=== PATIENT | male | born 1960 | race Two or more races ===

== ENCOUNTER 2018-01-13 20:32 | Inpatient (IN) | payer MEDICAID, OTHER ==
[~2018-01-13] VITALS: Ht 170.2 cm; Wt 72.1 kg
[~2018-01-13 20:32] MED LIST: ACET-868 PO; BISA10SU8 RC; CHOL500052 PO; DOCU250C14 PO; Doxycycline Hyclate PO; LACT1CAP72 PO; LEVE250T2 PO; MUPI22OI7; OXCA600T8 PO; PANT40TA2 PO; PIPERACILLIN /TAZOBACTAM 3.375 G in IV D5W 50 ML IV ONE; SUCR1TAB PO; TAMS-12 PO
--- NOTE | 2018-01-13 20:45 | NUR ---
GERRI86 FROM [facility] C/O SOB/FEVER/LOW 02 SAT X 2 DAYS. PT DX W/PNEUMONIA AND STARTED ON ROCEPHIN AT 1700 TODAY. AOX2, TACHYCARDIC AND HYPOTENSIVE. PT IS CONFUSED, MOSTLY GIVES YES AND NO ANSWERS. SKIN WARM TO TOUCH, DRY, INTACT. 2 IV SITES SOCK LINING STITCHER, RIGHT FINGER AND LEFT AC. READY FOR EVAL. WILL CONT TO MONITOR.
[2018-01-13] MEDS ORDERED: PIPERACILLIN /TAZOBACTAM 3.375 G VIAL IV ONE (20:49)
[2018-01-13] MEDS ORDERED: ACETAMINOPHEN 650 MG/SUPP.RECT RC ONE ×2 (20:49→21:00)
[2018-01-13] MEDS ORDERED: VANCOMYCIN 1 GM VIAL ONE ×2 (20:49→23:35)
--- NOTE | 2018-01-13 20:55 | NUR ---
SCREW MACHINE TOOL SETTER IN ROOM
[2018-01-13] MEDS ORDERED: PIPERACILLIN /TAZOBACTAM 3.375 G in IV D5W 50 ML IV ONE (21:00)
[2018-01-13] MEDS ORDERED: VANCOMYCIN 1 GM in IV D5W 250 ML IV ONE ×2 (21:00→23:45)
[2018-01-13] MEDS ORDERED: IV NS 0.9% 1,000 ML BAG IV ONE (21:00)
[2018-01-13] MEDS ORDERED: ALBUTEROL FS 2.5 MG/3 ML VIAL.NEB ONE (21:07)
[2018-01-13 21:22] LABS: BASOPHILS % (AUTO) 0.3 % (0.0-2.0); EOSINOPHILS % (AUTO) 0.9 % (0.0-6.0); HEMATOCRIT 48 % (39-51); LYMPHOCYTES # (AUTO) 0.5 /CMM (0.8-4.8); LYMPHOCYTES % (AUTO) 4.8 % (20.0-44.0); MEAN CORPUSCULAR HGB CONC 33 g/dl (31.0-36.0); MEAN CORPUSCULAR VOLUME 91 fL (80-96); MONOCYTES # (AUTO) 0.9 /CMM (0.1-1.30); MONOCYTES % (AUTO) 7.8 % (2.0-12.0); NEUTROPHILS # (AUTO) 9.6 /CMM (1.8-8.9); NEUTROPHILS % (AUTO) 86.2 % (43.0-81.0); PLATELET COUNT (AUTO) 175 /CMM (150-450); RED BLOOD CELL COUNT(AUTO) 5.33 MIL/uL (4.5-6.0); WHITE BLOOD COUNT (AUTO) 11.1 K/uL (4.3-11.0)
[2018-01-13] MEDS ORDERED: methylPREDNISolone SOD SUCC 125 MG/2ML VIAL IV ONE (21:30)
[2018-01-13] MEDS ORDERED: ALBUTEROL FS 2.5 MG/3 ML VIAL.NEB CONTNEB ONE (21:30)
--- NOTE | 2018-01-13 21:39 | NUR ---
PT CAME IN WITH IV ON RIGHT FINGER AND LEFT AC. D/C BOTH DUE TO INABILITY TO FLUSH
--- NOTE | 2018-01-13 22:10 | NUR ---
UNABLE TO INFUSE FLUIDS/MEDICATIONS DUE TO INABILITY TO GAIN APPROPRIATE IV ACCESS. CAN, HARP REPAIRER NOTIFIED.
[2018-01-13 22:25] VITALS: BP 97/60
[2018-01-13 22:27] LABS: ALANINE AMINOTRANSFERASE 40 U/L (12-78); ALKALINE PHOSPHATASE 141 U/L (46-116); ASPARTATE AMINOTRANSFERASE 41 U/L (15-37); BILIRUBIN,DIRECT 0.1 mg/dL (0.0-0.2); BILIRUBIN,TOTAL 0.3 mg/dL (0.2-1.0); CALCIUM, SERUM 8.1 mg/dL (8.5-10.1); CARBON DIOXIDE 27 mmol/L (21-32); CHLORIDE 105 mmol/L (98-107); CREATININE 0.7 mg/dL (0.6-1.3); GLUCOSE 168 mg/dL (74-106); SODIUM SERUM 142 mmol/L (136-145); TOTAL PROTEIN, SERUM 7.5 g/dL (6.4-8.2)
--- NOTE | 2018-01-13 22:27 | NUR ---
RT PT PLACED ON BIPAP PER MD ORDERS WITH NOTED SETTING. PT TOLERATING SETTING WELL. BIPAP TO RED OUTLET. SERAFINU BAG AT HOB. WILL CONTINUE TO MONITOR. Addendum: 01/13/18 at 2230 by MICHELLE HEARD RT Amended: Links added.
[2018-01-13] MEDS ORDERED: ALBUTEROL FS 2.5 MG/0.5 ML VIAL.NEB NEB PRN (22:30)
[2018-01-13] MEDS ORDERED: NOREPINEPHRINE 8 MG in IV D5W 500 ML IV PRN (22:30)
[2018-01-13] MEDS ORDERED: IPRATROPIUM NEB FS 0.5 MG/2.5 ML AMPUL.NEB NEB PRN (22:30)
[2018-01-13] MEDS ORDERED: ACETAMINOPHEN 650 MG/SUPP.RECT RC PRN (22:30)
[2018-01-13 22:32] LABS: UREA NITROGEN, BLOOD 8 mg/dL (7-18)
--- NOTE | 2018-01-13 23:00 | NUR ---
REPORT GIVEN TO ALEXSANDRA CALVERT
--- NOTE | 2018-01-13 23:10 | NUR ---
SHELL MOLD BONDING MACHINE OPERATOR NOTES Received patient from ER ,awake,alert,follows commands seems to understand,but not talking,.Stable ,not in any distress,was transported on NRM 100 % 02,tolerating well,but patient is on BIPAP. [facility],Fever and low O2 saturation,has not been feeling well for the last 5 days ..HX of Seizure Disorder,Dementia, HTN,COPD,GERD,Neurogenic Bladder. In ER was febrile gcfw=644,weas given Tylenol, Lactic Acid=0.9.Troponin=0.017, was given Zosyn,Ceftriaxone. was unable to give fluid bolus due to Access issue( unable to obtain IV access).Pending Midline Insertion. Patient alert, moves all extremities but with weakness but is able to turn to sides and lift all extremities,skin intact.Abdomen large but soft,non tender.
[2018-01-13 23:15] VITALS: BP 101/61
--- NOTE | 2018-01-13 23:18 | NUR ---
PT TRANSFERRED TO ICU
[2018-01-13 23:30] VITALS: BP 99/65
[2018-01-14] VITALS (59 sets, daily range): BP systolic 72–118; BP diastolic 28–84
[2018-01-14] MEDS ORDERED: PIPERACILLIN /TAZOBACTAM 3.375 G in IV D5W 50 ML IV SCH ×2
[2018-01-14] MEDS ORDERED: methylPREDNISolone SOD SUCC 125 MG/2ML VIAL ONE (00:19)
[2018-01-14] MEDS: IV NS 0.9% 1,000 ML IV PRN ×2 (00:20→18:13)
--- NOTE | 2018-01-14 01:00 | NUR ---
COUPON MANIFEST CLERK NOTES MIDLINE INSERTED BY PICC RN ,(DIANA) VIA ELLY WITH GOOD BLOOD RETURN.IVFLUIDS STARTED,VANCOMYCIN INFUSION STARTED AND FLUID BOLUSES ORDERED IN ER STARTED.
[2018-01-14 03:43] LABS: ABG BASE EXCESS -3.7 mmol/L; ABG OXYGEN SATURATION 99.3 % (92.0-98.5); ABG PCO2 58.3 mmHg (35.0-45.0); ABG PH 7.244 (7.350-7.450); ABG PO2 494.8 mmHg (75.0-100.0); AaDO2 159.9 mmHg; COHb 0.4 % (0.5-1.5); MetHb 0.9 % (0.0-1.5); PEEP,BG 5 cm H2O; SITE, ABG Right Radial; VENT MODE, BG ST 17/5 R14 100%
[2018-01-14] MEDS ORDERED: PIPERACILLIN /TAZOBACTAM 3.375 G in IV D5W 50 ML IV ONE (04:00)
--- NOTE | 2018-01-14 04:00 | NUR ---
AGRONOMY ADVISOR NOTES REMAINS STABLE ,AWAKE,ALERT BUT NOW MORE INTERACTIVE,TALKING CLEARLY,COHERENT AND APPROPRIATE.NOT IN ANY DISTRESS,MAINTAINED ON BIPAP ALL NIGHT( PATIENT COMPLIANT). BIPAP SETTINGS ADJUSTED BY RT ( BASED ON ABG).FIO2 DOWN TO 50 %,BUT INCREASED IPAP.
[2018-01-14] MEDS ORDERED: PIPERACILLIN /TAZOBACTAM 3.375 G VIAL IV ONE (04:15)
[2018-01-14 05:10] LABS: CALCIUM, SERUM 6.8 mg/dL (8.5-10.1); CREATININE 0.7 mg/dL (0.6-1.3); MAGNESIUM 1.8 mg/dL (1.8-2.4); POTASSIUM 3.7 mmol/L (3.5-5.1)
[2018-01-14 05:42] LABS: EOSINOPHILS % (AUTO) 0.1 % (0.0-6.0); HEMATOCRIT 43 % (39-51); HEMOGLOBIN 14.2 g/dL (13.5-17.5); LYMPHOCYTES # (AUTO) 0.3 /CMM (0.8-4.8); LYMPHOCYTES % (AUTO) 3.9 % (20.0-44.0); MEAN CORPUSCULAR HGB CONC 33 g/dl (31.0-36.0); MEAN CORPUSCULAR VOLUME 92 fL (80-96); MONOCYTES # (AUTO) 0.3 /CMM (0.1-1.30); MONOCYTES % (AUTO) 3.5 % (2.0-12.0); NEUTROPHILS # (AUTO) 7.8 /CMM (1.8-8.9); NEUTROPHILS % (AUTO) 92.5 % (43.0-81.0); PLATELET COUNT (AUTO) 166 /CMM (150-450); RED BLOOD CELL COUNT(AUTO) 4.72 MIL/uL (4.5-6.0); WHITE BLOOD COUNT (AUTO) 8.5 K/uL (4.3-11.0)
[2018-01-14] MEDS ORDERED: NOREPINEPHRINE 4 MG/4 ML AMPUL IV ONE (06:11)
--- NOTE | 2018-01-14 06:25 | NUR ---
TRAFFIC SIGN SUPERVISOR NOTES BP CONSISTENTLY LOW IN THE 80'S EVEN WHEN PATIENT AWAKENS.STARTED LEVOPHED DRIP.
--- NOTE | 2018-01-14 07:36 | NUR ---
FISHER SPEAR RECEIVED PATIENT FROM THE PREVIOUS SHIFT. PATIENT IS IN BED. RESTING COMFORTABLY. NO ACUTE DISTRESS NOTED. BIPAP SETTINGS REVIEWED AND VERIFIED. SLEEPING AT THIS TIME. ALERT AWAKE AND AROUSABLE. WILL CONTINUE TO MONITOR AND PROVIDE CARE.
[2018-01-14] MEDS ORDERED: FEE PK DOSING 1 MIN EA MC ONE (09:11)
[2018-01-14] MEDS: PANTOPRAZOLE 40 MG VIAL IV SCH (09:15)
[2018-01-14] MEDS ORDERED: BISACODYL SUPP (10 MG) 10 MG/SUPP.RECT SUPP.RECT RC PRN (10:00)
[2018-01-14] MEDS ORDERED: VANCOMYCIN 1 GM in IV D5W 250 ML IV SCH (10:00)
[2018-01-14] MEDS: VANCOMYCIN 1 GM in IV D5W 250 ML IV SCH ×2 (11:12→17:23)
[2018-01-14] MEDS: methylPREDNISolone SOD SUCC 125 MG/2ML VIAL IV SCH (11:12)
[2018-01-14] MEDS: LEVETIRACETAM (250 MG) 250 MG TABLET PO SCH ×2 (11:12→21:30)
[2018-01-14] MEDS: PIPERACILLIN /TAZOBACTAM 3.375 G in IV D5W 100 ML IV SCH ×2 (11:12→17:22)
--- NOTE | 2018-01-14 11:12 | NUR ---
pt placed off bipap. onto n/c. reel slitter Antony aware of changes. Addendum: 01/14/18 at 1113 by RAFAEL MARIANO RT Amended: Links added.
[2018-01-14] MEDS: OXCARBAZEPINE 150 MG TABLET PO SCH ×2 (11:13→17:23)
[2018-01-14] MEDS ORDERED: POTASSIUM PHOSPHATE MM 7.5 MMOL in IV D5W 100 ML IV SCH (11:30)
[2018-01-14 14:52] LABS: APPEARANCE,URINE CLEAR (CLEAR); BILIRUBIN,URINE NEGATIVE (NEGATIVE); BLOOD, URINE TRACE-INTA Ery/uL (NEGATIVE); COLOR,URINE YELLOW (YELLOW); KETONES,URINE 1+ (NEGATIVE); LEUKOCYTE ESTERASE ,URINE TRACE (NEGATIVE); NITRITE, URINE NEGATIVE (NEGATIVE); PROTEIN,URINE NEGATIVE (NEGATIVE); UGLUCOSE 1+ mg/dL (NEGATIVE); UROBILINOGEN,URINE 0.2 EU/dL (0.2)
[2018-01-14 15:16] LABS: BACTERIA,URINE 1+ /HPF (None Seen); SQUAMOUS EPITHELIAL CELL,UR 0-2 /HPF (None Seen)
[2018-01-14] MEDS: LACTOBACILLUS RHAMNOSUS GG 1 EACH CAP.SPRINK PO SCH (17:23)
--- NOTE | 2018-01-14 19:00 | NUR ---
RECEIVED PT IN NO ACUTE DISTRESS IN BED. PT IS A/O X 3 AND ABLE TO MAKE NEEDS KNOWN. PT IS [place] SPEAKING WITH SOME UNDERSTANDING OF WOLOF. PT IS ON O2 VIA NC @ 4LPM AND TOLERATING WELL WITH O2 SAT @ 96%. PT NOT C/O ANY SOB, DIFFICULTY BREATHING OR PAIN AT THIS TIME. PT HAS ELLY MIDLINE THAT IS CLEAN DRY INTACT AND PATENT WITH NS @ 75ML/HR. PT HAS RIGHT FOOT 20G THAT IS CLEAN DRY INTACT AND PATENT WITH SALINE FLUSH. BED IN LOW LOCK POSITION WITH RIALS UP X 2. CALL LIGHT WITHIN REACH AND ALL SAFETY MEASURES ENSURED AND CARRIED OUT. WILL CONTINUE TO MONITOR.
[2018-01-14] MEDS: TAMSULOSIN 0.4 MG CAP.SR.24H PO SCH (21:30)
[2018-01-14] MEDS: SUCRALFATE 1 G TABLET PO SCH (21:30)
[2018-01-14] MEDS: DOCUSATE SODIUM 250 MG CAPSULE PO SCH (21:30)
[2018-01-15] VITALS (18 sets, daily range): BP systolic 87–124; BP diastolic 48–77
[2018-01-15] MEDS: VANCOMYCIN 1 GM in IV D5W 250 ML IV SCH ×3 (02:40→16:57)
[2018-01-15] MEDS: PIPERACILLIN /TAZOBACTAM 3.375 G in IV D5W 100 ML IV SCH ×3 (02:40→18:53)
[2018-01-15 04:57] LABS: CALCIUM, SERUM 7.8 mg/dL (8.5-10.1); CREATININE 0.6 mg/dL (0.6-1.3); POTASSIUM 3.5 mmol/L (3.5-5.1)
[2018-01-15] MEDS: IV NS 0.9% 1,000 ML IV PRN (06:34)
--- NOTE | 2018-01-15 07:20 | NUR ---
PT REMAINS IN NO ACUTE DISTRESS IN BED. PT DID NOT HAVE ANY SIGNIFICANT CHANGE IN CONDITION DURING SHIFT. ALL NEEDS MET, ALL ORDERS CARRIED OUT. WILL ENDORSE CARE TO AM RN FOR CONTINUITY OF CARE.
[2018-01-15] MEDS ORDERED: PANTOPRAZOLE 40 MG TABLET.DR PO SCH (07:30)
--- NOTE | 2018-01-15 07:30 | NUR ---
received patient alert confused a/ox1-2; pleasant/cooperative. vss. iv sites c/d/i/p with ivf running per order. safety, skin, aspiration precautions in place and will monitor
--- NOTE | 2018-01-15 08:53 | NUR ---
PER DR ESTEFANI DIEGO TO TRANSFER PATIENT TO TELE
[2018-01-15] MEDS: methylPREDNISolone SOD SUCC 125 MG/2ML VIAL IV SCH (10:08)
[2018-01-15] MEDS: LACTOBACILLUS RHAMNOSUS GG 1 EACH CAP.SPRINK PO SCH ×2 (10:08→16:51)
[2018-01-15] MEDS: OXCARBAZEPINE 150 MG TABLET PO SCH ×2 (10:08→16:51)
[2018-01-15] MEDS: PANTOPRAZOLE 40 MG VIAL IV SCH (10:08)
[2018-01-15] MEDS: SUCRALFATE 1 G TABLET PO SCH ×2 (10:08→20:52)
[2018-01-15 10:09] LABS: ABG BASE EXCESS 5.9 mmol/L; ABG OXYGEN SATURATION 92.3 % (92.0-98.5); ABG PCO2 56.1 mmHg (35.0-45.0); ABG PH 7.384 (7.350-7.450); ABG PO2 61.1 mmHg (75.0-100.0); AaDO2 21.5 mmHg; COHb 0.8 % (0.5-1.5); MetHb 0.7 % (0.0-1.5); O2Hb 90.9 % (94.0-97.0); SITE, ABG Right Radial; VENT MODE, BG room air
[2018-01-15] MEDS: LEVETIRACETAM (250 MG) 250 MG TABLET PO SCH ×2 (10:17→20:51)
--- NOTE | 2018-01-15 10:30 | NUR ---
dr arango notified of patient abg. taken on room air. per md sutton for 1lpm nc and ok downgrade to tele bed. nitin bueno notified
[2018-01-15] MEDS: IPRATROPIUM NEB FS 0.5 MG/2.5 ML AMPUL.NEB NEB SCH ×3 (11:48→20:00)
[2018-01-15] MEDS: ALBUTEROL FS 2.5 MG/0.5 ML VIAL.NEB NEB SCH ×3 (11:48→20:00)
--- NOTE | 2018-01-15 12:28 | NUR ---
REPORT GIVEN TO ABEBE UPTON FOR JESSEE. ROOM 111-2 TELE
--- NOTE | 2018-01-15 12:30 | NUR ---
TRANSFERRED PATIENT TO TELE 111.2 CARE ENDORSED TO ALEXSANDRA LOMAS FOR JESSEE.
--- NOTE | 2018-01-15 12:35 | NUR ---
BUTTON SAWYER OPENING NOTES PT TRANSFERRED TO 111-2 FROM ICU. REPORT TAKEN FROM ALEXSANDRA MORALES. PT IS NOT IN RESP DISTRESS. ON TELE ST 104. ZOSYN RUNNING VIA ELLY MIDLINE. NO S/SX INFECTION. BED ALARM ON. BED IN LOCKED/LOWEST POSITION. CALL LIGHT IN REACH. WILL CONT TO MONITOR.
--- NOTE | 2018-01-15 19:10 | NUR ---
TELE/RN INITIAL NOTES RECEIVED PT IN BED, ALERT, ON 1L O2 VIA NC, TOLERATING WELL, NO SOB NOTED. SINUS TACHY ON TELEMONITOR. WITH ONGOING ZOSYN AND IVF NS @ 75ML/HR INFUSING WELL ON ELLY MIDLINE. WITH INTACT AND PATENT RFOOT G20 HEPLOCK. HOB ELEVATED. SAFETY MEASURES IN PLACED. CALL LIGHT WITHIN EASY REACH. WILL CONT TO MONITOR
--- NOTE | 2018-01-15 19:16 | NUR ---
DIRECTOR CARDIOVASCULAR CLOSING NOTES REPORT GIVEN TO PM NURSE FOR JESSEE. PT HAS ZOSYN RUNNING VIA ELLY MIDLINE. PT IS RESTING IN BED. NO COMPLAINTS OR RESP DISTRESS NOTED. BED IN LOCKED/LOWEST POSITION. CALL LIGHT IN REACH. ALL NEEDS ATTENDED TO.
[2018-01-15] MEDS: DOCUSATE SODIUM 250 MG CAPSULE PO SCH (21:30)
[2018-01-15] MEDS: TAMSULOSIN 0.4 MG CAP.SR.24H PO SCH (21:30)
[2018-01-15] MEDS: ACETAMINOPHEN 325 MG TABLET PO PRN (21:32)
[2018-01-16] VITALS: BP 107/67
[2018-01-16] MEDS: PIPERACILLIN /TAZOBACTAM 3.375 G in IV D5W 100 ML IV SCH ×3 (01:35→18:02)
[2018-01-16] MEDS: VANCOMYCIN 1 GM in IV D5W 250 ML IV SCH ×3 (01:36→17:52)
[2018-01-16 04:00] VITALS: BP 110/68
--- NOTE | 2018-01-16 06:47 | NUR ---
RN NOTES PT IN STABLE CONDITION. NO ACUTE CHANGES NOTED THROUGHOUT SHIFT. SAFETY MEASURES OBSERVED AT ALL TIMES. ALL NEEDS ANTICIPATED. ENDORSED TO AM SHIFT RN FOR JESSEE
[2018-01-16 08:00] VITALS: BP 114/78
--- NOTE | 2018-01-16 08:00 | NUR ---
PAPER BAGS SEWING MACHINE OPERATOR NOTES RECEIVE PATIENT IN BED, ALERT ORIENTED X2. O2 1L VIA NC, O2 SAT 95%. PATIENT ON TELEMONITOR. ST 107, PATIENT HAVING BREAKFAST FED BY STAFF. RIGHT UPPER LINE WITH NS 75CC/HR. BED IN LOWEST AND LOCKED POSITION. CALL LIGHT WAS IN REACH, WE WILL CONTINUE TO MONITOR CLOSELY
[2018-01-16] MEDS: ALBUTEROL FS 2.5 MG/0.5 ML VIAL.NEB NEB SCH ×4 (08:20→19:30)
[2018-01-16] MEDS: IPRATROPIUM NEB FS 0.5 MG/2.5 ML AMPUL.NEB NEB SCH ×4 (08:20→19:30)
[2018-01-16] MEDS: OXCARBAZEPINE 150 MG TABLET PO SCH ×2 (08:23→16:19)
[2018-01-16] MEDS: methylPREDNISolone SOD SUCC 125 MG/2ML VIAL IV SCH (08:24)
[2018-01-16] MEDS: SUCRALFATE 1 G TABLET PO SCH ×2 (08:24→20:37)
[2018-01-16] MEDS: LACTOBACILLUS RHAMNOSUS GG 1 EACH CAP.SPRINK PO SCH ×2 (08:24→16:19)
[2018-01-16] MEDS: PANTOPRAZOLE 40 MG VIAL IV SCH (08:25)
[2018-01-16 08:31] LABS: CALCIUM, SERUM 8.2 mg/dL (8.5-10.1); CREATININE 0.6 mg/dL (0.6-1.3); POTASSIUM 3.9 mmol/L (3.5-5.1)
[2018-01-16] MEDS: LEVETIRACETAM (250 MG) 250 MG TABLET PO SCH ×2 (08:33→20:38)
[2018-01-16] MEDS ORDERED: ERGOCALCIFEROL (VITAMIN D 2) 50,000 UNIT CAPSULE PO SCH (09:00)
[2018-01-16] MEDS: IV NS 0.9% 1,000 ML IV PRN (09:26)
--- NOTE | 2018-01-16 09:41 | NUR ---
ANALYTIC PROGRAMMER NOTE ST AT BEDSIDE SWALLOW EVAL DONE ,CONT ON PUREE DIET
[2018-01-16] MEDS: ACETAMINOPHEN 325 MG TABLET PO PRN (09:55)
--- NOTE | 2018-01-16 10:10 | NUR ---
GALLEY HAND NOTE DR JARA AT BEDSIDE AWARE THAT PATIENT STILL WHEEZING UPON AUSCULTATION BREATHING TX OK ON IVF ORDERED ,WILL F\U
[2018-01-16 10:37] LABS: BASOPHILS % (AUTO) 0.3 % (0.0-2.0); EOSINOPHILS % (AUTO) 0.3 % (0.0-6.0); HEMATOCRIT 49 % (39-51); HEMOGLOBIN 15.9 g/dL (13.5-17.5); LYMPHOCYTES # (AUTO) 0.7 /CMM (0.8-4.8); LYMPHOCYTES % (AUTO) 8.2 % (20.0-44.0); MEAN CORPUSCULAR HGB CONC 33 g/dl (31.0-36.0); MEAN CORPUSCULAR VOLUME 90 fL (80-96); MONOCYTES # (AUTO) 0.4 /CMM (0.1-1.30); MONOCYTES % (AUTO) 4.3 % (2.0-12.0); NEUTROPHILS # (AUTO) 7.9 /CMM (1.8-8.9); NEUTROPHILS % (AUTO) 86.9 % (43.0-81.0); PLATELET COUNT (AUTO) 237 /CMM (150-450); RED BLOOD CELL COUNT(AUTO) 5.38 MIL/uL (4.5-6.0); WHITE BLOOD COUNT (AUTO) 9.1 K/uL (4.3-11.0)
[2018-01-16 12:00] VITALS: BP 130/85
--- NOTE | 2018-01-16 12:30 | NUR ---
telephone messenger note all needs attended ,having lunch , fed by stuff, aspiration precaution observed , will cont to monitor closely
[2018-01-16] MEDS ORDERED: MAGN400O6 PO (12:52)
[2018-01-16] MEDS ORDERED: NA P133E RC (12:52)
[2018-01-16] MEDS ORDERED: CHOL50004 PO (12:52)
[2018-01-16] MEDS ORDERED: ATOR10TA PO (12:52)
--- NOTE | 2018-01-16 14:22 | NUR ---
INTERPRETER DEAF NOTE CALLED TO SNF ABOUT UA RESULT AT SNF TO FAX , SPOKE WITH MEDICAL RECORD , STATED THAT NO UA AT SNF
--- NOTE | 2018-01-16 14:57 | NUR ---
MARKETING PLANNING MANAGER NOTE NEW HL ON LT AC MELANIA 24 INSERTED WITH GOOD BLOOD RETURN
[2018-01-16 16:00] VITALS: BP 117/66
--- NOTE | 2018-01-16 18:33 | NUR ---
OFFICE RENTAL CLERK NOTE CONT ON ATB ORDERED FED BY STUFF , ALL NEEDS ATTENDED
--- NOTE | 2018-01-16 19:10 | NUR ---
TELE/RN INITIAL NOTES RECEIVED PT IN BED, A/OX2. SR HR 90S ON TELEMONITOR. ON 1L O2 VIA NC, TOLERATING WELL. NO SOB NOTED. DENIES PAIN AT THIS TIME. WITH ONGOING ZOSYN IV ATB AND NS AT 75 ML/HR INFUSING WELL ON ELLY MIDLINE. HOB ELEVATED. SAFETY MEASURES IN PLACED. CALL LIGHT WITHIN EASY REACH. WILL CONT TO MONITOR
[2018-01-16 20:00] VITALS: BP 110/73
[2018-01-16] MEDS: TAMSULOSIN 0.4 MG CAP.SR.24H PO SCH (21:06)
[2018-01-16] MEDS: DOCUSATE SODIUM 250 MG CAPSULE PO SCH (21:07)
[2018-01-17] VITALS: BP 103/64
[2018-01-17] MEDS: PIPERACILLIN /TAZOBACTAM 3.375 G in IV D5W 100 ML IV SCH ×3 (01:16→17:38)
[2018-01-17 04:00] VITALS: BP 103/65
[2018-01-17] MEDS: IV NS 0.9% 1,000 ML IV PRN ×2 (04:14→21:30)
--- NOTE | 2018-01-17 06:58 | NUR ---
RN NOTES PT IN STABLE CONDITION. NO ACUTE CHANGES THROUGHOUT SHIFT. SAFETY MEASURES OBSERVED AT ALL TIMES. ALL NEEDS ANTICIPATED. CALL LIGHT WITHIN EASY REACH. ENDORSED TO AM SHIFT RN FOR JESSEE
[2018-01-17 06:59] LABS: BASOPHILS % (AUTO) 0.4 % (0.0-2.0); EOSINOPHILS % (AUTO) 0.9 % (0.0-6.0); HEMATOCRIT 48 % (39-51); HEMOGLOBIN 16.1 g/dL (13.5-17.5); LYMPHOCYTES # (AUTO) 1.1 /CMM (0.8-4.8); LYMPHOCYTES % (AUTO) 13.6 % (20.0-44.0); MEAN CORPUSCULAR HGB CONC 34 g/dl (31.0-36.0); MEAN CORPUSCULAR VOLUME 89 fL (80-96); MONOCYTES # (AUTO) 0.9 /CMM (0.1-1.30); MONOCYTES % (AUTO) 10.4 % (2.0-12.0); NEUTROPHILS # (AUTO) 6.2 /CMM (1.8-8.9); NEUTROPHILS % (AUTO) 74.7 % (43.0-81.0); PLATELET COUNT (AUTO) 234 /CMM (150-450); WHITE BLOOD COUNT (AUTO) 8.3 K/uL (4.3-11.0)
[2018-01-17 07:10] LABS: CALCIUM, SERUM 8.2 mg/dL (8.5-10.1); CREATININE 0.8 mg/dL (0.6-1.3); POTASSIUM 3.1 mmol/L (3.5-5.1)
[2018-01-17] MEDS: ALBUTEROL FS 2.5 MG/0.5 ML VIAL.NEB NEB SCH ×5 (07:12→20:20)
[2018-01-17] MEDS: IPRATROPIUM NEB FS 0.5 MG/2.5 ML AMPUL.NEB NEB SCH ×5 (07:12→20:20)
--- NOTE | 2018-01-17 07:15 | NUR ---
TELE/RN OPENING NOTES RECEIVED PT IN BED, A/OX1. SR HR 102 ON TELEMONITOR. ON 1L O2 VIA NC SATURATING 91%, TOLERATING WELL. NO SOB NOTED. DENIES PAIN AT THIS TIME. NS AT 75 ML/HR INFUSING WELL ON ELLY MIDLINE. HOB ELEVATED. SAFETY MEASURES IN PLACED. CALL LIGHT WITHIN EASY REACH. WILL CONT TO MONITOR
[2018-01-17 08:00] VITALS: BP 108/81
[2018-01-17] MEDS: OXCARBAZEPINE 150 MG TABLET PO SCH ×2 (08:54→17:38)
[2018-01-17] MEDS: LACTOBACILLUS RHAMNOSUS GG 1 EACH CAP.SPRINK PO SCH ×2 (08:54→17:37)
[2018-01-17] MEDS: SUCRALFATE 1 G TABLET PO SCH ×2 (08:54→21:27)
[2018-01-17] MEDS: LEVETIRACETAM (250 MG) 250 MG TABLET PO SCH ×2 (08:54→21:27)
[2018-01-17] MEDS: methylPREDNISolone SOD SUCC 125 MG/2ML VIAL IV SCH (08:54)
[2018-01-17] MEDS: PANTOPRAZOLE 40 MG VIAL IV SCH (08:55)
[2018-01-17] MEDS: POTASSIUM CHLORIDE 20 MEQ POWDER PACKET NG SCH ×2 (10:29→17:37)
[2018-01-17 16:00] VITALS: BP 101/77
[2018-01-17] MEDS ORDERED: PIPE3.376 IV (16:15)
--- NOTE | 2018-01-17 16:35 | NUR ---
DR. JARA ENTERED DISCHARGE ORDER PRIVATE WATCHMAN GLO NOTIED AWAITS BED AVAILABILITY IN SNF.
--- NOTE | 2018-01-17 19:30 | NUR ---
TELE/RN CLOSING NOTES PT IN BED, A/OX1. ON 1L O2 VIA NC SATURATING 90%, TOLERATING WELL. NO SOB NOTED. DENIES PAIN AT THIS TIME. ON ZOSYN, INFUSING WELL ON ELLY MIDLINE. HOB ELEVATED. SAFETY MEASURES IN PLACED. CALL LIGHT WITHIN EASY REACH. [facility].TO CONTINUE ATB AND NEED FEEDER.ENDORSED TO PM NURSE FOR JESSEE.
[2018-01-17 20:00] VITALS: BP 105/64
--- NOTE | 2018-01-17 20:00 | NUR ---
RN INITIAL NOTES RECEIVED PT IN BED, A/OX2. ON 2L VIA NC, TOLERATING WELL. NO SOB NOTED. DENIES PAIN AT THIS TIME. WITH ONGOING ZOSYN IV ATB AND NS AT 75 ML/HR INFUSING WELL ON ELLY MIDLINE. HOB ELEVATED. SAFETY MEASURES IN PLACED. PT TO BE D/C TONIGHT. CALL LIGHT WITHIN EASY REACH. WILL CONT TO MONITOR
--- NOTE | 2018-01-17 20:20 | NUR ---
PATIENT BEING DISCHARGED Addendum: 01/17/18 at 2020 by BHARAT VEE RT Amended: Links added. Addendum: 01/17/18 at 2309 by BHARAT VEE RT PATIENT IS ASLEEP; NO DISTRESS NOTED
--- NOTE | 2018-01-17 21:00 | NUR ---
RN NOTES PT WAS NOT DISCHARGED BECAUSE HR WAS 118 AND [facility] WITH HR AT 118. WILL CONT TO MONITOR AND CALL AMBULANCE WHEN PTS HR IS LOWERED.
[2018-01-17] MEDS: DOCUSATE SODIUM 250 MG CAPSULE PO SCH (21:26)
[2018-01-17] MEDS: TAMSULOSIN 0.4 MG CAP.SR.24H PO SCH (21:27)
[2018-01-17] MEDS: ACETAMINOPHEN 325 MG TABLET PO PRN (21:27)
[2018-01-18 00:33] VITALS: BP 105/64
[2018-01-18] MEDS: PIPERACILLIN /TAZOBACTAM 3.375 G in IV D5W 100 ML IV SCH ×2 (01:30→10:13)
[2018-01-18 04:00] VITALS: BP 91/61
[2018-01-18 06:26] LABS: BASOPHILS % (AUTO) 0.1 % (0.0-2.0); EOSINOPHILS % (AUTO) 0.7 % (0.0-6.0); HEMATOCRIT 46 % (39-51); HEMOGLOBIN 15.3 g/dL (13.5-17.5); LYMPHOCYTES # (AUTO) 1.1 /CMM (0.8-4.8); LYMPHOCYTES % (AUTO) 11.8 % (20.0-44.0); MEAN CORPUSCULAR HGB CONC 33 g/dl (31.0-36.0); MEAN CORPUSCULAR VOLUME 90 fL (80-96); MONOCYTES # (AUTO) 0.8 /CMM (0.1-1.30); MONOCYTES % (AUTO) 8.8 % (2.0-12.0); NEUTROPHILS # (AUTO) 7.3 /CMM (1.8-8.9); NEUTROPHILS % (AUTO) 78.6 % (43.0-81.0); PLATELET COUNT (AUTO) 260 /CMM (150-450); RED BLOOD CELL COUNT(AUTO) 5.14 MIL/uL (4.5-6.0); WHITE BLOOD COUNT (AUTO) 9.2 K/uL (4.3-11.0)
[2018-01-18 06:46] LABS: POTASSIUM 3.1 mmol/L (3.5-5.1)
--- NOTE | 2018-01-18 07:00 | NUR ---
TMD TEACHER ASSISTANT OPENING NOTES RECEIVED PT IN BED, A/OX2. ON 5LTS O2 VIA MASK TOLERATING WELL. NO SOB NOTED. DENIES PAIN AT THIS TIME. SLEEPING COMFORTABLE ORDERS FOR POSSIBLE DISCHARGE TODAY HOB ELEVATED. SAFETY MEASURES IN PLACED. CALL LIGHT WITHIN EASY REACH. WILL CONT TO MONITOR
--- NOTE | 2018-01-18 07:03 | NUR ---
RN CLOSING NOTES RECEIVED PT IN BED, A/OX2. ON 2L O2 VIA NC, TOLERATING WELL. NO SOB NOTED. DENIES PAIN AT THIS TIME. NS AT 75 ML/HR INFUSING WELL ON ELLY MIDLINE. HOB ELEVATED. SAFETY MEASURES IN PLACED. CALL LIGHT WITHIN EASY REACH. ALL NEEDS ANTICIPATED AND MET. WILL ENDORSE TO AM RN.
[2018-01-18] MEDS: IPRATROPIUM NEB FS 0.5 MG/2.5 ML AMPUL.NEB NEB SCH ×3 (07:25→14:53)
[2018-01-18] MEDS: ALBUTEROL FS 2.5 MG/0.5 ML VIAL.NEB NEB SCH ×3 (07:25→14:53)
[2018-01-18] MEDS ORDERED: POTASSIUM CHLORIDE 20 MEQ TAB.PRT.SR PO ONE (07:30)
[2018-01-18] MEDS: LEVETIRACETAM (250 MG) 250 MG TABLET PO SCH (08:43)
[2018-01-18] MEDS: SUCRALFATE 1 G TABLET PO SCH (08:43)
[2018-01-18] MEDS: LACTOBACILLUS RHAMNOSUS GG 1 EACH CAP.SPRINK PO SCH (08:43)
[2018-01-18] MEDS: PANTOPRAZOLE 40 MG VIAL IV SCH (08:43)
[2018-01-18] MEDS: OXCARBAZEPINE 150 MG TABLET PO SCH (08:43)
[2018-01-18] MEDS: methylPREDNISolone SOD SUCC 125 MG/2ML VIAL IV SCH (08:44)
--- NOTE | 2018-01-18 12:49 | NUR ---
CARBON PAPER MACHINE OPERATOR NOTES REPORT GIVEN TO ALEXSANDRA URIBE @[facility] [phone]
[2018-01-18 14:14] VITALS: BP 91/61
[2018-01-18 16:00] VITALS: BP 113/68
--- NOTE | 2018-01-18 16:33 | NUR ---
INSTITUTE DIRECTOR NOTES SPOKE WITH ROMELIA UPTON IN REGARDS TO ELEVATED HR VERIFIED WITH DON OK TO TRANSFER. PATIENT TO LEAVE UNIT VIA GURNEY AND EMS
== END 2018-01-18 16:45 | DRG 720 ==
LOC: ER 20:33 → UNDOADMIN 21:55 → TELE1 21:55 → ICU 21:55 → TELE1 22:16 → TELE-TD 22:16 → ICU 23:00 → TELE1 01-15 12:39 → MEDSG1 01-17 09:42
PROVIDERS: ADMIT Nurse Practitioner Acute Care; ATTEND Internal Medicine
PROC: 05H533Z Insertion of Infusion Device into Right Subclavian Vein, Percutaneous Approach (ICD-10-PCS; principal; 2018-01-14)
PROC: 5A09357 Assistance with Respiratory Ventilation, Less than 24 Consecutive Hours, Continuous Positive Airway Pressure (ICD-10-PCS; principal; 2018-01-14)
DX: A41.9 Sepsis, unspecified organism (principal); R65.21 Severe sepsis with septic shock; G93.40 Encephalopathy, unspecified; J90 Pleural effusion, not elsewhere classified; J96.01 Acute respiratory failure with hypoxia; J96.02 Acute respiratory failure with hypercapnia; E44.0 Moderate protein-calorie malnutrition; J18.9 Pneumonia, unspecified organism; E87.0 Hyperosmolality and hypernatremia; F03.90 Unspecified dementia, unspecified severity, without behavioral disturbance, psychotic disturbance, mood disturbance, and anxiety; G40.909 Epilepsy, unspecified, not intractable, without status epilepticus; E55.9 Vitamin D deficiency, unspecified; E78.5 Hyperlipidemia, unspecified; F79 Unspecified intellectual disabilities; I10 Essential (primary) hypertension; Z86.11 Personal history of tuberculosis; Z86.14 Personal history of Methicillin resistant Staphylococcus aureus infection; Z87.01 Personal history of pneumonia (recurrent); K29.70 Gastritis, unspecified, without bleeding; E88.09 Other disorders of plasma-protein metabolism, not elsewhere classified; M62.50 Muscle wasting and atrophy, not elsewhere classified, unspecified site; Z68.24 Body mass index [BMI] 24.0-24.9, adult; N39.0 Urinary tract infection, site not specified; N40.1 Benign prostatic hyperplasia with lower urinary tract symptoms; H54.8 Legal blindness, as defined in USA; J44.1 Chronic obstructive pulmonary disease with (acute) exacerbation; J44.0 Chronic obstructive pulmonary disease with (acute) lower respiratory infection; K21.9 Gastro-esophageal reflux disease without esophagitis; I73.9 Peripheral vascular disease, unspecified; K59.00 Constipation, unspecified
CPT/HCPCS: 36415; 36569; 36600; 71045-TC; 80048-TC; 80061-TC; 80076-TC; 80202-TC; 81000-TC; 82803-TC; 83605-TC; 83735-TC; 84100-TC; 84484-TC; 85025-TC; 85730-TC; 87040-TC; 87070-TC; 87081-TC; 87086-TC; 87400; 92526; 92611-TC; 94660; 94799-TC; 99082-TC; A4349; A4606; A6402; C9113; G0378; J2543; J2930; J3370; J3490; J7030; J7040; J7060; Z7610

== ENCOUNTER 2018-05-05 04:22 | Inpatient (IN) | payer MEDICAID ==
[~2018-05-05] VITALS: Ht 170.2 cm; Wt 68.9 kg
[~2018-05-05 04:22] MED LIST changes: +ATOR10TA PO; +CHOL50004 PO; -CHOL500052 PO; -Doxycycline Hyclate PO; -LACT1CAP72 PO; +MAGN400O6 PO; +NA P133E RC; -PANT40TA2 PO; +PIPE3.376 IV; -PIPERACILLIN /TAZOBACTAM 3.375 G in IV D5W 50 ML IV ONE; -SUCR1TAB PO
--- NOTE | 2018-05-05 04:22 | NUR ---
Note undone in EDM - 05/05/18 at 0522 by CONRADO BIB RA frm SNF for SOB and hypoxia. SP02 in field 88%. Given breathing tx in field with some relief. nad noted. pt aao x1. currently on NC, tolerating well. will continue to monitor.
--- NOTE | 2018-05-05 04:30 | NUR ---
TO BED 7 BIB PARAMEDICS C/O SOB AND HYPOXIA, O2 SAT 88%, RHONCHI HEARD BILATERALLY. PT AAOX1, PLACE PT ON CARDIAC MONITORING, CONTINUOUS POX, O2@2L/NC. RT QAT BEDSIDE TO VASQUEZ PT. PENDING ER MD OVALLE.
--- NOTE | 2018-05-05 04:55 | NUR ---
STARTED SL 18G TO L WRIST, BLOOD DRAWN AND SENT TO LAB.
[2018-05-05] MEDS ORDERED: IV NS 0.9% 1,000 ML BAG IV ONE (05:00)
[2018-05-05 05:06] LABS: BASOPHILS # (AUTO) 0.1 /CMM (0.0-0.2); BASOPHILS % (AUTO) 0.5 % (0.0-2.0); EOSINOPHILS % (AUTO) 0.8 % (0.0-6.0); HEMATOCRIT 45 % (39-51); HEMOGLOBIN 15.4 g/dL (13.5-17.5); LYMPHOCYTES # (AUTO) 1.8 /CMM (0.8-4.8); LYMPHOCYTES % (AUTO) 15.1 % (20.0-44.0); MEAN CORPUSCULAR HGB CONC 34 g/dl (31.0-36.0); MEAN CORPUSCULAR VOLUME 88 fL (80-96); MONOCYTES # (AUTO) 0.8 /CMM (0.1-1.30); MONOCYTES % (AUTO) 7.1 % (2.0-12.0); NEUTROPHILS # (AUTO) 9.1 /CMM (1.8-8.9); NEUTROPHILS % (AUTO) 76.5 % (43.0-81.0); PLATELET COUNT (AUTO) 188 /CMM (150-450); RED BLOOD CELL COUNT(AUTO) 5.12 MIL/uL (4.5-6.0); WHITE BLOOD COUNT (AUTO) 11.9 K/uL (4.3-11.0)
[2018-05-05] MEDS ORDERED: LIDOCAINE 2% JEL UROJET 10 ML MM ONE ×2 (05:06→05:30)
--- NOTE | 2018-05-05 05:14 | NUR ---
urine sample collected and sent to lab.
[2018-05-05 05:19] LABS: CALCIUM, SERUM 8.8 mg/dL (8.5-10.1); CARBON DIOXIDE 28 mmol/L (21-32); CHLORIDE 103 mmol/L (98-107); CREATININE 0.7 mg/dL (0.6-1.3); GLUCOSE 162 mg/dL (74-106); POTASSIUM 3.7 mmol/L (3.5-5.1); SODIUM SERUM 139 mmol/L (136-145); UREA NITROGEN, BLOOD 7 mg/dL (7-18)
[2018-05-05 05:21] LABS: APPEARANCE,URINE CLEAR (CLEAR); BILIRUBIN,URINE 1+ (NEGATIVE); BLOOD, URINE TRACE Ery/uL (NEGATIVE); COLOR,URINE DARK YELLO (YELLOW); KETONES,URINE 1+ (NEGATIVE); LEUKOCYTE ESTERASE ,URINE NEGATIVE (NEGATIVE); NITRITE, URINE NEGATIVE (NEGATIVE); PROTEIN,URINE 2+ mg/dl (NEGATIVE); UGLUCOSE NEGATIVE (NEGATIVE)
[2018-05-05 05:23] LABS: ALANINE AMINOTRANSFERASE 62 U/L (12-78); ALBUMIN 3.2 g/dL (3.4-5.0); ALKALINE PHOSPHATASE 156 U/L (46-116); ASPARTATE AMINOTRANSFERASE 44 U/L (15-37); BILIRUBIN,DIRECT 0.3 mg/dL (0.0-0.2); BILIRUBIN,TOTAL 0.8 mg/dL (0.2-1.0); TOTAL PROTEIN, SERUM 7.8 g/dL (6.4-8.2)
[2018-05-05] MEDS ORDERED: PIPERACILLIN /TAZOBACTAM 3.375 G in IV D5W 50 ML IV ONE (05:30)
[2018-05-05 05:32] LABS: BACTERIA,URINE None seen /HPF (None Seen); MUCUS,URINE Few /LPF (None Seen); SQUAMOUS EPITHELIAL CELL,UR Few /HPF (None Seen); WBC,URINE 0-2 /HPF (0-3)
--- NOTE | 2018-05-05 05:36 | NUR ---
pt assigned to [facility] [phone]
[2018-05-05] MEDS ORDERED: CT SWABBABLE VALVE TRANS SET 1 EA INFUS.SET MC ONE (05:44)
[2018-05-05] MEDS ORDERED: IOHEXOL-300 100 ML VIAL IV ONE (05:44)
--- NOTE | 2018-05-05 05:44 | NUR ---
PAGED DR MCKEON
[2018-05-05] MEDS ORDERED: IV NS 0.9% 250 ML IV ONE (05:45)
[2018-05-05] MEDS ORDERED: IOHEXOL-350 100 ML VIAL IV ONE (05:50)
[2018-05-05] MEDS ORDERED: methylPREDNISolone SOD SUCC 125 MG/2ML VIAL IV ONE (06:00)
--- NOTE | 2018-05-05 06:09 | NUR ---
PT TO CT
[2018-05-05] MEDS ORDERED: ONDANSETRON HCL/PF 4 MG/2 ML VIAL IVP PRN (06:30)
[2018-05-05] MEDS ORDERED: MAGNESIUM HYDROXIDE 30 ML UDC PO PRN (06:30)
[2018-05-05] MEDS ORDERED: Z GUARD REMEDY 2 OZ OINT TP PRN (06:30)
[2018-05-05] MEDS ORDERED: ACETAMINOPHEN 325 MG TABLET PO PRN (06:30)
[2018-05-05] MEDS ORDERED: HYDROCODONE/APAP 5/325MG 1 EACH TABLET PO PRN (06:30)
[2018-05-05] MEDS ORDERED: ENOXAPARIN SODIUM 40 MG/0.4 ML DISP.SYRIN SQ SCH ×2 (06:30→06:53)
[2018-05-05] MEDS ORDERED: IPRATROPIUM NEB FS 0.5 MG/2.5 ML AMPUL.NEB NEB ONE (06:30)
[2018-05-05] MEDS ORDERED: VANCOMYCIN 1 GM in IV D5W 250 ML IV ONE (06:30)
[2018-05-05] MEDS ORDERED: MAG HYDROX/AL HYDROX/SIMETH 30 ML UDC PO PRN (06:30)
[2018-05-05] MEDS ORDERED: ZOLPIDEM TARTRATE 5 MG TABLET PO PRN (06:30)
--- NOTE | 2018-05-05 06:37 | NUR ---
REPORT GIVEN TO EVERARDO UPTON FOR JESSEE
[2018-05-05] MEDS ORDERED: methylPREDNISolone SOD SUCC 125 MG/2ML VIAL ONE (06:56)
[2018-05-05] MEDS ORDERED: ALBUTEROL FS 2.5 MG/0.5 ML VIAL.NEB ONE (07:09)
[2018-05-05] MEDS ORDERED: IPRATROPIUM NEB FS 0.5 MG/2.5 ML AMPUL.NEB ONE (07:09)
--- NOTE | 2018-05-05 07:52 | NUR ---
PT SLEEPING RESP EVEN UNLABORED VANCO GIVEN PER MD ORDER .
[2018-05-05] MEDS: ALBUTEROL FS 2.5 MG/0.5 ML VIAL.NEB NEB SCH ×4 (09:00→21:00)
[2018-05-05 09:18] VITALS: BP 118/73
--- NOTE | 2018-05-05 09:18 | NUR ---
CEREAL CHEMISTTEST PILOT NOTE RECEIVED PT FROM ER VIA RGILBERTO WITH DX OF COPD EXACERBATION. PT IS ALERT AND ORIENTED TO SELF ONLY, SCOTTISH SPEAKING ONLY AND LEGALLY BLIND. PT PLACED ON DIGITIZER AND IT SINUS TACH WITH 1ST DEGREE AV BLOCK, HR 110. POLST AND SNF SEIZURE AND ASPIRATION PRECAUTIONS INITIATED. BED IS LOCKED AND IN LOWEST POSITION, SIDE RAILS UP X3, BED ALARM ON, CALL LIGHT WITHIN REACH. Addendum: 05/05/18 at 1005 by ALENA HIRSCH RN POLST AND SNF DOCUMENTATION OBTAINED AND PLACED IN CHART. ADMISSION ORDERS RECIVED FROM DR. MCKEON AND PLACED DURING OVERNIGHT SHIFT. PRIMARY HOSPITALIST ASSIGNED IS BROOKE ALEXANDER DNP. PENDING CLARIFICATION OF DIET ORDERS. BASED ON PRIOR SNF RECORD, PT HAS A PUREE BRENDON DIET BUT REGULAR DIET IS ORDERED.
--- NOTE | 2018-05-05 10:12 | NUR ---
TRANSFER CAR OPERATOR DRIER NOTE SENT MESSAGE TO BROOKE ALEXANDER DNP REGARDING HOME MED RECON. PER BROOKE "OK".
[2018-05-05] MEDS: IV NS 0.9% 1,000 ML IV PRN ×2 (10:16→23:30)
[2018-05-05 12:00] VITALS: BP 112/74
[2018-05-05] MEDS ORDERED: PIPERACILLIN /TAZOBACTAM 4.5 G in IV D5W 50 ML IV SCH (12:00)
--- NOTE | 2018-05-05 12:43 | NUR ---
RESEARCH INSTRUMENTATION TECHNICIAN NOTE FOLLOWED UP WITH BROOKE ALEXANDER DNP REGARDING HOME MED RECON. AWAITING RESPONSE.
[2018-05-05] MEDS: methylPREDNISolone SOD SUCC 40 MG/ML VIAL IV SCH ×2 (12:57→17:05)
[2018-05-05] MEDS: PIPERACILLIN /TAZOBACTAM 3.375 G in IV D5W 100 ML IV SCH ×2 (12:57→20:04)
[2018-05-05] MEDS ORDERED: NA PHOS,M-B/NA PHOS,DI-BA 1 EA ENEMA RC PRN (13:00)
[2018-05-05] MEDS ORDERED: BISACODYL SUPP (10 MG) 10 MG/SUPP.RECT SUPP.RECT RC PRN (13:00)
[2018-05-05 15:34] VITALS: BP 117/76
--- NOTE | 2018-05-05 16:51 | NUR ---
CONTRACT ADMINISTRATION MANAGER NOTE CALLED ULTRASOUND AND SPOKE WITH SYBIL REGARDING VENOUS DOPPLER TO RULE OUT DVT. PER SYBIL THE NURSE NEEDS TO SPEAK WITH CARDIOLOGY DEPARTMENT AT [id number]. CALLED EXTENSION, NO ANSWER. WILL FOLLOW UP.
[2018-05-05] MEDS: CHOLECALCIFEROL 1,000 UNIT TABLET (VIT D3) PO SCH (17:05)
--- NOTE | 2018-05-05 17:32 | NUR ---
TREATING MACHINE OPERATOR NOTE CALLED CARDIOLOGY AT [phone] TO FOLLOW UP ON VENOUS DOPPLER TO R/O DVT. LEFT VOICEMAIL WITH CALL BACK EXTENSION NUMBER FOR 3 WEST. AWAITING RESPONSE.
--- NOTE | 2018-05-05 18:08 | NUR ---
VISITOR SERVICES SPECIALIST CLOSING NOTE PT IN BED, RESTING WITH EYES CLOSED AND EASILY AROUSABLE. PT IS ALERT AND ORIENTED X1, BRITISH SPEAKING ONLY AND LEGALLY BLIND IN BOTH EYES. NO ACUTE DISTRESS NOTED, BREATHING IS EVEN AND UNLABORED ON 3L NC. PT ON LOCK EXPERT AND IS SINUS TACH WITH FIRST DEGREE AV BLOCK, HR 100-110 FOR THE DURATION OF THE SHIFT. LEFT WRIT #18G IV IS INFUSING NS @ 75ML/HR WITHOUT REDNESS OR SWELLING. ASPIRATION AND SEIZURE PRECAUTIONS MAINTAINED. ADLS PROVIDED AND PT ASSISTED TO TURN AND REPOSITION Q2H FOR THE DURATION OF THE SHIFT. BED IS LOCKED AND IN LOWEST POSITION, SIDE RAILS UP X2, BED ALARM ON, CALL LIGHT AND POSSESSIONS WITHIN REACH. WILL ENDORSE TO E BUSINESS CONSULTANT NURSE FOR CONTINUITY OF CARE.
--- NOTE | 2018-05-05 19:00 | NUR ---
VEHICLE DELIVERY WORKER NOTES Received patient awake, on Hollins's position with O2 inhalation via NC @ 2LPM, saturating well, no SOB/respiratory distress noted. Patient is legally blind OU, able to verbalized needs. Patient denies discomfort at this time. Kept on bed, clean, dry and comfortable. Kept bed low and locked, siderails up, with call light within easy reach. Will continue to monitor accordingly.
[2018-05-05 20:00] VITALS: BP 107/78
[2018-05-05 20:11] VITALS: BP 107/78
[2018-05-05] MEDS: LEVETIRACETAM (250 MG) 250 MG TABLET PO SCH (20:56)
[2018-05-05] MEDS: OXCARBAZEPINE 150 MG TABLET PO SCH (20:57)
[2018-05-05] MEDS: TAMSULOSIN 0.4 MG CAP.SR.24H PO SCH (21:17)
[2018-05-05] MEDS: DOCUSATE SODIUM 250 MG CAPSULE PO SCH (21:17)
[2018-05-05] MEDS: ATORVASTATIN 10 MG TABLET PO SCH (21:17)
[2018-05-06 00:15] VITALS: BP 110/78
[2018-05-06] MEDS: ALBUTEROL FS 2.5 MG/0.5 ML VIAL.NEB NEB SCH ×7 (00:58→23:04)
--- NOTE | 2018-05-06 01:37 | NUR ---
MANAGER CAREER NOTES Per RT Norm, breathing treatment may be reset with usual timing Q4H starting 0700. 0100 dose given, patient remained on O2 inhalation, saturating well, no SOB/respiratory distress noted. Will continue to monitor accordingly.
[2018-05-06] MEDS: PIPERACILLIN /TAZOBACTAM 3.375 G in IV D5W 100 ML IV SCH ×3 (04:07→20:26)
[2018-05-06 04:11] VITALS: BP 114/65
[2018-05-06 06:19] LABS: BASOPHILS % (AUTO) 0.3 % (0.0-2.0); EOSINOPHILS % (AUTO) 0.1 % (0.0-6.0); HEMATOCRIT 41 % (39-51); HEMOGLOBIN 13.8 g/dL (13.5-17.5); LYMPHOCYTES # (AUTO) 0.7 /CMM (0.8-4.8); LYMPHOCYTES % (AUTO) 8.3 % (20.0-44.0); MEAN CORPUSCULAR HGB CONC 34 g/dl (31.0-36.0); MEAN CORPUSCULAR VOLUME 90 fL (80-96); MONOCYTES # (AUTO) 0.2 /CMM (0.1-1.30); MONOCYTES % (AUTO) 2.1 % (2.0-12.0); NEUTROPHILS # (AUTO) 7.2 /CMM (1.8-8.9); NEUTROPHILS % (AUTO) 89.2 % (43.0-81.0); PLATELET COUNT (AUTO) 178 /CMM (150-450); RED BLOOD CELL COUNT(AUTO) 4.56 MIL/uL (4.5-6.0); WHITE BLOOD COUNT (AUTO) 8.1 K/uL (4.3-11.0)
--- NOTE | 2018-05-06 06:41 | NUR ---
GRINDER TENDER CLOSING NOTES Patient asleep at this time, no SOB/respiratory distress noted. On O2 inhalation @ 2LPM as ordered, saturating well. No new unusualities noted. All nursing needs attended. All due meds given as ordered. Kept on bed clean, dry and comfortable. Call light at bedside. Endorsed to the next shift.
[2018-05-06 06:46] LABS: ALBUMIN 2.7 g/dL (3.4-5.0); BILIRUBIN,TOTAL 0.3 mg/dL (0.2-1.0); CALCIUM, SERUM 8.3 mg/dL (8.5-10.1); CREATININE 0.6 mg/dL (0.6-1.3); MAGNESIUM 2.2 mg/dL (1.8-2.4); PHOSPHORUS 2.2 mg/dL (2.5-4.9); POTASSIUM 3.6 mmol/L (3.5-5.1); TOTAL PROTEIN, SERUM 6.6 g/dL (6.4-8.2)
--- NOTE | 2018-05-06 07:30 | NUR ---
ACCOUNT CONSULTANT NOTES PT IN BED, ASLEEP, EASILY AROUSABLE, ALERT AND ORIENTED, DENIES PAIN, RESPIRATIONS NORMAL, NO COMPLAINT OF SOB, IV FLUIDS INFUSING WELL, CALL LIGHT WITHIN REACH, NEEDS ATTENDED.
[2018-05-06 08:00] VITALS: BP 94/54
[2018-05-06] MEDS: LEVETIRACETAM (250 MG) 250 MG TABLET PO SCH ×2 (08:45→21:13)
[2018-05-06] MEDS: OXCARBAZEPINE 150 MG TABLET PO SCH ×2 (08:45→21:11)
[2018-05-06] MEDS: methylPREDNISolone SOD SUCC 40 MG/ML VIAL IV SCH ×3 (08:45→17:09)
[2018-05-06] MEDS: ENOXAPARIN SODIUM 40 MG/0.4 ML DISP.SYRIN SQ SCH ×2 (08:46→09:00)
[2018-05-06 10:45] LABS: ABG BASE EXCESS -0.4 mmol/L; ABG OXYGEN SATURATION 92.1 % (92.0-98.5); ABG PCO2 48.4 mmHg (35.0-45.0); ABG PH 7.346 (7.350-7.450); ABG PO2 64.9 mmHg (75.0-100.0); AaDO2 48.6 mmHg; COHb 0.9 % (0.5-1.5); MetHb 0.6 % (0.0-1.5); O2Hb 90.7 % (94.0-97.0); SITE, ABG Right Radial; VENT MODE, BG Nasal Cannula
[2018-05-06] MEDS: IPRATROPIUM NEB FS 0.5 MG/2.5 ML AMPUL.NEB NEB SCH ×4 (11:00→23:04)
[2018-05-06] MEDS: NEUTRA PHOS 1 POWD.PACKET PO SCH ×2 (12:45→17:09)
--- NOTE | 2018-05-06 12:51 | NUR ---
RN MS NOTES PT IN BED, ASLEEP, EASY TO AROUSE, ALERT AND VERBALLY RESPONSIVE, SEEN BY DR. PADRON, ORDERS GIVEN AND CARRIED OUT, IV SITE AT LEFT WRIST NOTED TO BE INFILTRATED, IV D/C'D, ELEVATED LEFT ARM AND ICE PACK APPLIED, NEW IV AT RIGHT HAND, IVF INFUSING WELL, ASSISTED WITH MEALS, TOLERATING CURRENT DIET WELL, NO COMPLAINT OF PAIN, NO SOB.
[2018-05-06] MEDS: CHOLECALCIFEROL 1,000 UNIT TABLET (VIT D3) PO SCH (17:09)
--- NOTE | 2018-05-06 19:00 | NUR ---
RN MS NOTES PT IN BED, AWAKE, ALERT AND VERBALLY RESPONSIVE, ASSISTED WITH MEALS BY CARTON FORMING MACHINE OPERATOR, NOTED WITH GOOD APPETITE, NO COMPLAINT OF PAIN, NOT IN DISTRESS, CALL LIGHT WITHIN REACH, NOTED IV SITE AT RIGHT HAND INFILTRATED AGAIN, ATTEMPTED TO REINSERT BUT WAS UNSUCCESSFUL, NOTIFIED DR. ALEXANDER AND ORDERED MIDLINE INSERTION, PT INFORMED, NURSING OPERATIONS SUPPORT MANAGER INFORMED, MIDLINE NURSE TO COME IN 1 HOUR, ENDORSED CARE TO EXCEPTIONAL CHILDREN'S TEACHER NURSE.
--- NOTE | 2018-05-06 19:05 | NUR ---
RN MS OPENING NOTES RECEIVED PATIENT IN BED AWAKE ALERT AND ORIENTED X 2, ON 2 L VIA NC, RESPIRATIONS EVEN AND UNLABORED WITH EQUAL RISE AND FALL OF CHEST, DENIES ANY PAIN OR DISCOMFORT, AWAITING FOR MIDLINE NURSE FOR PLACEMENT, ORIENTED TO STAFF AND CALL LIGHT AND PLACED WITHIN REACH, SAFETY PRECAUTIONS RENDERED LOW BED AND LOCKED, BED ALARM IN PLACE, REPOSITIONING AND FLUIDS OFFERED, PERINEAL CARE PROVIDED BMX 1. WILL CONTINUE TO MONITOR AND ATTEND TO NEEDS.REMAINS COMFORTABLE AT THIS TIME.
[2018-05-06 20:00] VITALS: BP 98/63
--- NOTE | 2018-05-06 20:07 | NUR ---
RN MS NOTES MIDLINE NURSE DIANA AT BEDSIDE FOR MIDLINE INSERTION, MIDLINE TO LEFT UPPER ARM #18G. DRESSING INTACT AND PATENT, WILL GIVE IV ZOSYN AT THIS TIME, LEFT WRIST IV SITE REMOVED, NO BLEEDING. TOLERATED WELL.
[2018-05-06] MEDS: DOCUSATE SODIUM 250 MG CAPSULE PO SCH (21:11)
[2018-05-06] MEDS: ATORVASTATIN 10 MG TABLET PO SCH (21:12)
[2018-05-06] MEDS: TAMSULOSIN 0.4 MG CAP.SR.24H PO SCH (21:12)
[2018-05-06] MEDS: IV NS 0.9% 1,000 ML IV PRN (21:15)
[2018-05-07] MEDS: ALBUTEROL FS 2.5 MG/0.5 ML VIAL.NEB NEB SCH ×6 (03:56→23:30)
[2018-05-07] MEDS: IPRATROPIUM NEB FS 0.5 MG/2.5 ML AMPUL.NEB NEB SCH ×6 (03:56→23:30)
[2018-05-07] MEDS: PIPERACILLIN /TAZOBACTAM 3.375 G in IV D5W 100 ML IV SCH ×3 (04:08→20:47)
--- NOTE | 2018-05-07 06:57 | NUR ---
RN MS CLOSING NOTES PATIENT IN BED AWAKE ALERT AND ORIENTED X 2, ON 2 L VIA NC, RESPIRATIONS EVEN AND UNLABORED WITH EQUAL RISE AND FALL OF CHEST, DENIES ANY PAIN OR DISCOMFORT,MIDLINE TO LEFT UPPER ARM #18 G INTACT AND PATENT , DRESSING IS CLEAN DRY AND INTACT , IVF RUNNING ORDERED.CALL LIGHT PLACED WITHIN REACH, SAFETY PRECAUTIONS RENDERED LOW BED AND LOCKED, BED ALARM IN PLACE, REPOSITIONING AND FLUIDS OFFERED, PERINEAL CARE PROVIDED BMX 2. WILL CONTINUE TO MONITOR AND ATTEND TO NEEDS.REMAINS COMFORTABLE AT THIS TIME. WILL ENDORSE TO NEXT SHIFT.
[2018-05-07 07:10] LABS: BASOPHILS % (AUTO) 0.1 % (0.0-2.0); HEMATOCRIT 40 % (39-51); HEMOGLOBIN 13.2 g/dL (13.5-17.5); LYMPHOCYTES # (AUTO) 0.7 /CMM (0.8-4.8); LYMPHOCYTES % (AUTO) 9.2 % (20.0-44.0); MEAN CORPUSCULAR HGB CONC 33 g/dl (31.0-36.0); MEAN CORPUSCULAR VOLUME 90 fL (80-96); MONOCYTES # (AUTO) 0.3 /CMM (0.1-1.30); MONOCYTES % (AUTO) 3.5 % (2.0-12.0); NEUTROPHILS % (AUTO) 87.2 % (43.0-81.0); PLATELET COUNT (AUTO) 235 /CMM (150-450); RED BLOOD CELL COUNT(AUTO) 4.39 MIL/uL (4.5-6.0)
[2018-05-07 07:19] LABS: CALCIUM, SERUM 8.2 mg/dL (8.5-10.1); CREATININE 0.8 mg/dL (0.6-1.3); MAGNESIUM 2.2 mg/dL (1.8-2.4); POTASSIUM 3.4 mmol/L (3.5-5.1)
--- NOTE | 2018-05-07 07:32 | NUR ---
MS RN OPENING NOTES RECEIVED PT LAYING IN BED WITH HOB SLIGHTLY ELEVATED. PT IS A/OX1-2, AFEBRILE. RESPIRATIONS ARE EVEN AND UNLABORED, NOT IN ANY ACUTE DISTRESS NOTED. TOLERATING O2 @2L/MIN VIA NC. PT DENIES ANY PAIN, SOB, N/V. MIDLINE TO LIVAN INTACT, NO INFILTRATION NOTED. DRESSING KEPT CLEAN AND DRY. SAFETY MEASURES ARE IN PLACE. INSTRUCTED PT TO USE CALL LIGHT WHEN ASSISTANCE IS NEEDED, CALL LIGHT IS LEFT WITHIN REACH. WILL MONITOR THROUGHOUT SHIFT FOR CONTINUITY OF CARE.
[2018-05-07 08:00] VITALS: BP 103/69
[2018-05-07] MEDS: LEVETIRACETAM (250 MG) 250 MG TABLET PO SCH ×2 (08:30→21:05)
[2018-05-07] MEDS: OXCARBAZEPINE 150 MG TABLET PO SCH ×2 (08:30→21:05)
[2018-05-07] MEDS: methylPREDNISolone SOD SUCC 40 MG/ML VIAL IV SCH ×3 (08:30→16:09)
[2018-05-07] MEDS: NEUTRA PHOS 1 POWD.PACKET PO SCH (08:31)
[2018-05-07] MEDS: ENOXAPARIN SODIUM 40 MG/0.4 ML DISP.SYRIN SQ SCH (08:39)
[2018-05-07] MEDS ORDERED: POTASSIUM CHLORIDE 20 MEQ TAB.PRT.SR PO ONE (09:00)
[2018-05-07] MEDS: MUPIROCIN OINT 2% 22 GM TUBE SCH ×2 (12:19→21:05)
--- NOTE | 2018-05-07 13:39 | NUR ---
MS RN NOTES-- PT NOT IN ANY APPARENT DISTRESS. ABLE TO MAKE NEEDS KNOWN. NEEDS RENDERED. WILL CONTINUE TO MONITOR.
[2018-05-07 16:01] VITALS: BP 106/74
[2018-05-07] MEDS: CHOLECALCIFEROL 1,000 UNIT TABLET (VIT D3) PO SCH (17:08)
--- NOTE | 2018-05-07 18:26 | NUR ---
MS RN CLOSING NOTES ALL DUE MEDS GIVEN, NEEDS MET AND RENDERED. PT REMAINS A/OX3, AFEBRILE. RESPIRATIONS ARE EVEN AND UNLABORED, NOT IN ANY ACUTE DISTRESS NOTED. PT DENIES ANY PAIN AT THIS TIME, NO C/O SOB, N/V.MIDLINE TO LIVAN INTACT, NO INFILTRATION NOTED. DRESSING KEPT CLEAN AND DRY. SAFETY MEASURES ARE IN PLACE. REPOSITIONED PER PROTOCOL. REMINDED PT TO USE CALL LIGHT WHEN ASSISTANCE IS NEEDED, CALL LIGHT IS LEFT WITHIN REACH. WILL ENDORSE TO NEXT SHIFT FOR CONTINUITY OF CARE.
[2018-05-07 20:00] VITALS: BP 131/85
--- NOTE | 2018-05-07 20:00 | NUR ---
MS RN NOTES RECEIVED PATIENT AWAKE IN BED WITH NO DISTRESS NOTED. CALL LIGHT WITHIN REACH. PERIPHERAL LINE INTACT AND PATENT. NO C/O PAIN OR DISCOMFORT. BED IN LOW LOCK SETTING. BED ALARM ON AND FUNCTIONING PROPERLY. ALL BELONGINGS KEPT NEAR BEDSIDE. WILL CONTINUE TO MONITOR.
[2018-05-07] MEDS: DOCUSATE SODIUM 250 MG CAPSULE PO SCH (21:04)
[2018-05-07] MEDS: TAMSULOSIN 0.4 MG CAP.SR.24H PO SCH (21:04)
[2018-05-07] MEDS: ATORVASTATIN 10 MG TABLET PO SCH (21:05)
[2018-05-08] MEDS: IPRATROPIUM NEB FS 0.5 MG/2.5 ML AMPUL.NEB NEB SCH ×4 (03:23→15:37)
[2018-05-08] MEDS: ALBUTEROL FS 2.5 MG/0.5 ML VIAL.NEB NEB SCH ×4 (03:23→15:37)
[2018-05-08] MEDS: IV NS 0.9% 1,000 ML IV PRN (03:37)
[2018-05-08] MEDS: PIPERACILLIN /TAZOBACTAM 3.375 G in IV D5W 100 ML IV SCH ×2 (03:40→12:22)
[2018-05-08 06:55] LABS: CALCIUM, SERUM 8.5 mg/dL (8.5-10.1); CREATININE 0.5 mg/dL (0.6-1.3); POTASSIUM 4.4 mmol/L (3.5-5.1)
--- NOTE | 2018-05-08 07:39 | NUR ---
MS RN NOTES PATIENT ASLEEP IN BED WITH NO DISTRESS NOTED. CALL LIGHT WITHIN REACH. PERIPHERAL LINE INTACT AND PATENT. ALL DUE MEDS GIVEN ORDERED WITH NO ASE NOTED. NO RESPIRATORY DISTRESS NOTED. NO C/O PAIN OR DISCOMFORT. BED IN LOW LOCK SETTING. ROOM FREE OF CLUTTER AND ALL BELONGINGS KEPT NEAR BEDSIDE. WILL ENDORSE TO ONCOMING SHIFT.
--- NOTE | 2018-05-08 07:45 | NUR ---
MS RN OPENING NOTE RECEIVED PATIENT IN BED. SLEEPING, EASILY AROUSED WITH VERBAL STIMULI, ORIENTED X 2. ON 2L O2 VIA NC, TOLERATING WELL. IN NO APPARENT DISTRESS OR DISCOMFORT AT THIS TIME. RESPIRATIONS EVEN AND UNLABORED. PATIENT IS ABLE TO COMMUNICATE NEEDS. PATIENT WITH LEFT UPPER ARM MIDLINE WITH FLUIDS RUNNING AT 75ML/HR. PATIENT KEPT CLEAN AND COMFORTABLE. SEIZURE PRECAUTIONS OBSERVED, CONTACT ISOLATION OBSERVED. ALL NEEDS ATTENDED, SAFETY MEASURES IN PLACE, BED IN LOW LOCKED POSITION. SIDE RAILS UP X2. CALL LIGHT WITHIN EASY REACH. WILL CONTINUE TO MONITOR.
[2018-05-08 07:58] LABS: BASOPHILS % (AUTO) 0.4 % (0.0-2.0); EOSINOPHILS % (AUTO) 0.1 % (0.0-6.0); HEMATOCRIT 43 % (39-51); HEMOGLOBIN 14.2 g/dL (13.5-17.5); LYMPHOCYTES # (AUTO) 1.3 /CMM (0.8-4.8); LYMPHOCYTES % (AUTO) 21.4 % (20.0-44.0); MEAN CORPUSCULAR HGB CONC 33 g/dl (31.0-36.0); MEAN CORPUSCULAR VOLUME 90 fL (80-96); MONOCYTES # (AUTO) 0.4 /CMM (0.1-1.30); MONOCYTES % (AUTO) 6.6 % (2.0-12.0); NEUTROPHILS # (AUTO) 4.4 /CMM (1.8-8.9); NEUTROPHILS % (AUTO) 71.5 % (43.0-81.0); PLATELET COUNT (AUTO) 246 /CMM (150-450); WHITE BLOOD COUNT (AUTO) 6.2 K/uL (4.3-11.0)
[2018-05-08 08:00] VITALS: BP 103/76
[2018-05-08] MEDS: OXCARBAZEPINE 150 MG TABLET PO SCH (08:27)
[2018-05-08] MEDS: methylPREDNISolone SOD SUCC 40 MG/ML VIAL IV SCH ×2 (08:28→12:21)
[2018-05-08] MEDS: LEVETIRACETAM (250 MG) 250 MG TABLET PO SCH (08:28)
[2018-05-08] MEDS: ENOXAPARIN SODIUM 40 MG/0.4 ML DISP.SYRIN SQ SCH (08:28)
[2018-05-08] MEDS: MUPIROCIN OINT 2% 22 GM TUBE SCH (08:36)
[2018-05-08 16:00] VITALS: BP 120/74
--- NOTE | 2018-05-08 16:30 | NUR ---
MS HIRE CAR DRIVER NOTE RECEIVED ORDER FROM DOMONIQUE REES TO DISCHARGE PATIENT TO [facility]. PATIENT IS STABLE VITAL SIGNS STABLE. ALERT ORIENTED X1. FOLLOWS DIRECTIONS BUT IS CONFUSED. 2L O2 VIA NC, TOLERATING WELL. IN NO APPARENT DISTRESS OR DISCOMFORT AT THIS TIME. RESPIRATIONS EVEN AND UNLABORED. DENIES PAIN AND SOB. DISCHARGE PREPARED VIA [facility]. DISCUSSED FOLLOW UP CARE, DIET, MEDICATIONS WITH THE ACCEPTING RN NOA AT THE REHAB. PATIENT'S BELONGINGS CHECKED AND VERIFIED WITH ANOTHER NURSE. ALL PAPERWORK SIGNED AND WITNESSED BY CHENTE OLIVA. COPIES MADE, PLACED IN CHART. PATIENT IS UP TO DATE WITH VACCINES AT THIS TIME. SKIN ASSESSMENT PERFORMED, PICTURES TAKEN PLACED IN CHART. PATIENT'S IV ACCESS ON LEFT UPPER ARM, 18G MIDLINE, PATENT AND INTACT, TO TRANSFER WITH THE IV SITE PER ELIDA REES NP. ID BAND REMOVED. PATIENT LEFT THE UNIT VIA AMBULANCE, ACCOMPANIED BY AMBULANCE TEAM AT 1630. REPORT GIVEN TO ALEXSANDRA WATKINS AND NOA UPTON AT THE FACILITY. PATIENT WILL BE GOING TO ROOM 29.
[2018-05-08] MEDS ORDERED: ACET325T53 PO (16:49)
[2018-05-08] MEDS ORDERED: IPRA12.9 INH (16:49)
[2018-05-08] MEDS ORDERED: MUPI22OI7 (16:49)
[2018-05-08] MEDS ORDERED: ENOX40DI SQ (16:49)
[2018-05-08] MEDS ORDERED: methylPREDNISolone SOD SUCC IV (16:49)
[2018-05-08] MEDS ORDERED: ALBU18HF2 INH (16:49)
== END 2018-05-08 16:30 | DRG 140 ==
LOC: ER 04:24 → TELE 06:11 → MED 05-06 08:54
PROVIDERS: ADMIT Hospitalist; ATTEND Registered Nurse
DX: J44.1 Chronic obstructive pulmonary disease with (acute) exacerbation (principal); J96.21 Acute and chronic respiratory failure with hypoxia; F03.90 Unspecified dementia, unspecified severity, without behavioral disturbance, psychotic disturbance, mood disturbance, and anxiety; E86.0 Dehydration; E44.1 Mild protein-calorie malnutrition; J47.9 Bronchiectasis, uncomplicated; J96.22 Acute and chronic respiratory failure with hypercapnia; H54.8 Legal blindness, as defined in USA; K21.9 Gastro-esophageal reflux disease without esophagitis; N40.0 Benign prostatic hyperplasia without lower urinary tract symptoms; Z86.11 Personal history of tuberculosis; E78.5 Hyperlipidemia, unspecified; E83.39 Other disorders of phosphorus metabolism; E87.6 Hypokalemia; G40.909 Epilepsy, unspecified, not intractable, without status epilepticus; I10 Essential (primary) hypertension; Z79.899 Other long term (current) drug therapy; Z87.891 Personal history of nicotine dependence
CPT/HCPCS: 36415; 36600; 71045-TC; 80048-TC; 80053-TC; 80061-TC; 80076-TC; 81000-TC; 82803-TC; 83605-TC; 83735-TC; 84100-TC; 84484-TC; 85025-TC; 85730-TC; 87040-TC; 87081-TC; 87086-TC; 93970-TC; 94799-TC; G0378; J1650; J2543; J2920; J2930; J3370; J3490; J7030; J7042; J7050; J7060; Q9967

== ENCOUNTER 2024-04-29 20:33 | Inpatient (IN) | payer MEDICAID, OTHER ==
[~2024-04-29] VITALS: Ht 165.1 cm
[2024-04-29] MEDS: VANCOMYCIN 1 GM in IV D5W 250 ML IV ONE
[~2024-04-29 20:33] MED LIST changes: -ACET-868 PO; +ACET325T53 PO; +ALBU18HF2 INH; +ENOX40DI SQ; +IPRA12.9 INH; -MAGN400O6 PO; -PIPE3.376 IV; +methylPREDNISolone SOD SUCC IV
[2024-04-29 21:15] LABS: BASOPHILS % (AUTO) 0.2 % (0.0-2.0); EOSINOPHILS % (AUTO) 0.2 % (0.0-6.0); HEMATOCRIT 44 % (39-51); HEMOGLOBIN 14.7 g/dL (13.5-17.5); LYMPHOCYTES # (AUTO) 1.3 K/uL (0.8-4.8); LYMPHOCYTES % (AUTO) 11.2 % (20.0-44.0); MEAN CORPUSCULAR HEMOGLOBIN 30 PG (26.0-33.0); MEAN CORPUSCULAR HGB CONC 33 g/dl (31.0-36.0); MEAN CORPUSCULAR VOLUME 90 fL (80-96); MONOCYTES # (AUTO) 1.2 K/uL (0.1-1.30); MONOCYTES % (AUTO) 10.9 % (2.0-12.0); NEUTROPHILS # (AUTO) 8.7 K/uL (1.8-8.9); NEUTROPHILS % (AUTO) 77.5 % (43.0-81.0); PLATELET COUNT (AUTO) 254 K/uL (150-450); RED BLOOD CELL COUNT(AUTO) 4.93 MIL/uL (4.5-6.0); RED CELL DISTRIBUTION WIDTH 13.9 % (11.5-15.0); WHITE BLOOD COUNT (AUTO) 11.2 K/uL (4.3-11.0)
[2024-04-29 22:59] LABS: CALCIUM, SERUM 8.7 mg/dL (8.5-10.1); CARBON DIOXIDE 28 mmol/L (21-32); CHLORIDE 107 mmol/L (98-107); CREATININE 0.8 mg/dL (0.6-1.3); GLUCOSE 136 mg/dL (74-106); POTASSIUM 3.6 mmol/L (3.5-5.1); SODIUM SERUM 143 mmol/L (136-145); UREA NITROGEN, BLOOD 13 mg/dL (7-18)
[2024-04-29 23:12] LABS: ALANINE AMINOTRANSFERASE 155 U/L (12-78); ALBUMIN 2.9 g/dL (3.4-5.0); ALKALINE PHOSPHATASE 207 U/L (46-116); ASPARTATE AMINOTRANSFERASE 137 U/L (15-37); BILIRUBIN,DIRECT 0.3 mg/dL (0.0-0.2); BILIRUBIN,TOTAL 0.5 mg/dL (0.2-1.0); NT-PRO BNP 253 pg/mL (0-125); TOTAL PROTEIN, SERUM 7.5 g/dL (6.4-8.2)
[2024-04-29] MEDS ORDERED: VANCOMYCIN 1 GM /D5W 250 ML PB IV ONE (23:21)
[2024-04-29] MEDS ORDERED: PIPERACI/TAZO 3.375GM/D5W 50ML PB IV ONE (23:21)
[2024-04-29] MEDS: PIPERACILLIN /TAZOBACTAM 3.375 G in IV D5W 50 ML IV ONE (23:30)
[2024-04-30] MEDS ORDERED: ONDANSETRON HCL/PF 4 MG/2 ML VIAL IVP PRN
[2024-04-30] MEDS ORDERED: ACETAMINOPHEN 325 MG TABLET PO PRN
[2024-04-30] MEDS ORDERED: ALBUTEROL FS 2.5 MG/0.5 ML VIAL.NEB NEB PRN
[2024-04-30 04:00] VITALS: BP 125/88; TEMP 98.4
[2024-04-30] MEDS: DOCUSATE SODIUM 250 MG CAPSULE PO SCH (04:13)
[2024-04-30] MEDS: TAMSULOSIN 0.4 MG CAP.SR.24H PO SCH (04:14)
[2024-04-30] MEDS: ATORVASTATIN 10 MG TABLET PO SCH (04:14)
[2024-04-30] MEDS: LEVETIRACETAM (250 MG) 250 MG TABLET PO SCH (04:15)
[2024-04-30] MEDS ORDERED: PIPERACI/TAZO 3.375GM/D5W 50ML PB IV ONE (05:26)
[2024-04-30] MEDS: ZOSYN IVPB 3.375 G in IV D5W 50ml IV ONE (05:34)
[2024-04-30] MEDS ORDERED: ALBUTEROL HALF STRENGTH 1.25 MG/3 ML VIAL.NEB NEB PRN (07:00)
[2024-04-30] MEDS ORDERED: IPRATROPIUM NEB FS 0.5 MG/2.5 ML AMPUL.NEB NEB PRN ×2 (07:00)
[2024-04-30] MEDS: methylPREDNISolone SOD SUCC 40 MG/ML VIAL IV SCH (07:23)
[2024-04-30 07:44] LABS: BASOPHILS # (AUTO) 0.1 K/uL (0.0-0.2); BASOPHILS % (AUTO) 0.5 % (0.0-2.0); EOSINOPHILS # (AUTO) 0.2 K/uL (0.0-0.7); EOSINOPHILS % (AUTO) 1.6 % (0.0-6.0); HEMATOCRIT 40 % (39-51); HEMOGLOBIN 13.5 g/dL (13.5-17.5); LYMPHOCYTES # (AUTO) 0.6 K/uL (0.8-4.8); LYMPHOCYTES % (AUTO) 5.3 % (20.0-44.0); MEAN CORPUSCULAR HEMOGLOBIN 30 PG (26.0-33.0); MEAN CORPUSCULAR HGB CONC 34 g/dl (31.0-36.0); MEAN CORPUSCULAR VOLUME 88 fL (80-96); MONOCYTES # (AUTO) 0.8 K/uL (0.1-1.30); MONOCYTES % (AUTO) 7.7 % (2.0-12.0); NEUTROPHILS # (AUTO) 9.2 K/uL (1.8-8.9); NEUTROPHILS % (AUTO) 84.9 % (43.0-81.0); PLATELET COUNT (AUTO) 216 K/uL (150-450); RED BLOOD CELL COUNT(AUTO) 4.54 MIL/uL (4.5-6.0); RED CELL DISTRIBUTION WIDTH 13.8 % (11.5-15.0); WHITE BLOOD COUNT (AUTO) 10.9 K/uL (4.3-11.0)
[2024-04-30 08:00] VITALS: BP 118/86; TEMP 97.5; O2SAT 98
[2024-04-30] MEDS ORDERED: IPRA3AMP23 NEB (08:33)
[2024-04-30] MEDS ORDERED: ACET325T53 PO (08:33)
[2024-04-30] MEDS ORDERED: DOCU100C36 PO (08:33)
[2024-04-30] MEDS ORDERED: LORA2VIA11 IM (08:33)
[2024-04-30] MEDS ORDERED: APIX5TAB PO (08:33)
[2024-04-30] MEDS ORDERED: MAGN400O6 PO (08:33)
[2024-04-30 08:41] LABS: CALCIUM, SERUM 8.6 mg/dL (8.5-10.1); CREATININE 0.5 mg/dL (0.6-1.3); MAGNESIUM 2.8 mg/dL (1.8-2.4); PHOSPHORUS 2.2 mg/dL (2.5-4.9); POTASSIUM 3.7 mmol/L (3.5-5.1)
[2024-04-30] MEDS: OXCARBAZEPINE 150 MG TABLET PO SCH (08:44)
[2024-04-30] MEDS: CHOLECALCIFEROL 1,000 UNIT TABLET (VIT D3) PO SCH (08:45)
[2024-04-30] MEDS: ENOXAPARIN SODIUM 40 MG/0.4 ML DISP.SYRIN SQ SCH (08:46)
[2024-04-30] MEDS: VANCOMYCIN HCL 1.25 GM in IV D5W 250 ML IV SCH (11:10)
[2024-04-30 12:00] VITALS: BP 122/82; TEMP 98; O2SAT 93
[2024-04-30] MEDS ORDERED: ZOSYN IVPB 3.375 G in IV D5W 50ml IV SCH (12:00)
[2024-04-30] MEDS: PIPERACILLIN /TAZOBACTAM 3.375 G in IV D5W 100 ML IV SCH (13:07)
[2024-04-30 16:00] VITALS: BP 94/56; TEMP 97.9; O2SAT 94
[2024-04-30] MEDS: K PHOS NEUTRAL 250 MG TABLET PO ONE (16:27)
[2024-04-30 20:00] VITALS: BP 120/83; TEMP 98.2; O2SAT 95
[2024-05-01] VITALS (9 sets, daily range): BP systolic 108–116; BP diastolic 68–80; TEMP 96.9–98.1; O2SAT 94–98
[2024-05-01 10:50] LABS: ABG BASE EXCESS 4.9 mmol/L (-2.0-3.0); ABG OXYGEN SATURATION 95.8 % (94.0-98.0); ABG PCO2 50.5 mmHg (35.0-48.0); ABG PH 7.403 (7.350-7.450); ABG PO2 79.6 mmHg (83.0-108.0); COHb 0.6 % (0.5-1.5); MetHb 0.2 % (0.0-1.5); SITE, ABG RIGHT RADIAL
[2024-05-01 12:21] LABS: CALCIUM, SERUM 8.8 mg/dL (8.5-10.1); CREATININE 0.7 mg/dL (0.6-1.3); MAGNESIUM 2.3 mg/dL (1.8-2.4); POTASSIUM 3.5 mmol/L (3.5-5.1)
[2024-05-01 12:29] LABS: BASOPHILS % (AUTO) 0.1 % (0.0-2.0); HEMATOCRIT 39 % (39-51); HEMOGLOBIN 13.2 g/dL (13.5-17.5); LYMPHOCYTES # (AUTO) 0.5 K/uL (0.8-4.8); LYMPHOCYTES % (AUTO) 6.5 % (20.0-44.0); MEAN CORPUSCULAR HEMOGLOBIN 30 PG (26.0-33.0); MEAN CORPUSCULAR HGB CONC 34 g/dl (31.0-36.0); MEAN CORPUSCULAR VOLUME 89 fL (80-96); MONOCYTES # (AUTO) 0.4 K/uL (0.1-1.30); MONOCYTES % (AUTO) 4.4 % (2.0-12.0); NEUTROPHILS # (AUTO) 7.3 K/uL (1.8-8.9); PLATELET COUNT (AUTO) 235 K/uL (150-450); RED BLOOD CELL COUNT(AUTO) 4.43 MIL/uL (4.5-6.0); RED CELL DISTRIBUTION WIDTH 13.3 % (11.5-15.0); WHITE BLOOD COUNT (AUTO) 8.3 K/uL (4.3-11.0)
[2024-05-01] MEDS: IPRATROPIUM NEB FS 0.5 MG/2.5 ML AMPUL.NEB NEB SCH (20:00)
[2024-05-01] MEDS: VANCOMYCIN 1 GM in IV D5W 250ml IV SCH (20:54)
[2024-05-02] VITALS (14 sets, daily range): BP systolic 104–123; BP diastolic 68–85; TEMP 97.5–98.6; O2SAT 92–100
[2024-05-02] MEDS: methylPREDNISolone SOD SUCC 40 MG/ML VIAL IV SCH (09:23)
[2024-05-02 12:41] LABS: CALCIUM, SERUM 8.6 mg/dL (8.5-10.1); CREATININE 0.7 mg/dL (0.6-1.3); MAGNESIUM 2.1 mg/dL (1.8-2.4); PHOSPHORUS 3.1 mg/dL (2.5-4.9); POTASSIUM 3.3 mmol/L (3.5-5.1)
[2024-05-02 14:38] LABS: HEMATOCRIT 43 % (39-51); HEMOGLOBIN 14.4 g/dL (13.5-17.5); LYMPHOCYTES # (AUTO) 0.6 K/uL (0.8-4.8); MEAN CORPUSCULAR HEMOGLOBIN 30 PG (26.0-33.0); MEAN CORPUSCULAR HGB CONC 34 g/dl (31.0-36.0); MEAN CORPUSCULAR VOLUME 88 fL (80-96); MONOCYTES % (AUTO) 8.6 % (2.0-12.0); NEUTROPHILS # (AUTO) 10.5 K/uL (1.8-8.9); NEUTROPHILS % (AUTO) 86.4 % (43.0-81.0); PLATELET COUNT (AUTO) 300 K/uL (150-450); RED BLOOD CELL COUNT(AUTO) 4.87 MIL/uL (4.5-6.0); RED CELL DISTRIBUTION WIDTH 13.2 % (11.5-15.0); WHITE BLOOD COUNT (AUTO) 12.1 K/uL (4.3-11.0)
[2024-05-02] MEDS: POTASSIUM CHLORIDE 20 MEQ TAB.PRT.SR PO ONE (17:53)
[2024-05-03] VITALS (9 sets, daily range): BP systolic 101–124; BP diastolic 68–82; TEMP 97–98.1; O2SAT 97–100
[2024-05-03 07:10] LABS: CALCIUM, SERUM 8.7 mg/dL (8.5-10.1); CREATININE 0.8 mg/dL (0.6-1.3); POTASSIUM 3.9 mmol/L (3.5-5.1)
[2024-05-03 13:54] LABS: BASOPHILS % (AUTO) 0.2 % (0.0-2.0); EOSINOPHILS % (AUTO) 0.2 % (0.0-6.0); HEMATOCRIT 44 % (39-51); HEMOGLOBIN 14.7 g/dL (13.5-17.5); LYMPHOCYTES # (AUTO) 1.1 K/uL (0.8-4.8); LYMPHOCYTES % (AUTO) 11.9 % (20.0-44.0); MEAN CORPUSCULAR HEMOGLOBIN 30 PG (26.0-33.0); MEAN CORPUSCULAR HGB CONC 34 g/dl (31.0-36.0); MEAN CORPUSCULAR VOLUME 89 fL (80-96); MONOCYTES % (AUTO) 11.6 % (2.0-12.0); NEUTROPHILS # (AUTO) 6.8 K/uL (1.8-8.9); NEUTROPHILS % (AUTO) 76.1 % (43.0-81.0); PLATELET COUNT (AUTO) 261 K/uL (150-450); RED BLOOD CELL COUNT(AUTO) 4.88 MIL/uL (4.5-6.0); RED CELL DISTRIBUTION WIDTH 13.8 % (11.5-15.0); WHITE BLOOD COUNT (AUTO) 8.9 K/uL (4.3-11.0)
[2024-05-03] MEDS ORDERED: METH4TAB17 PO (14:52)
[2024-05-03] MEDS ORDERED: LEVO500T90 PO (14:52)
== END 2024-05-03 19:54 | DRG 140 ==
LOC: ER 20:36 → TELE-TD 04-30 00:43 → TELE1 04-30 09:37
PROVIDERS: ADMIT Nurse Practitioner Acute Care; ATTEND Nurse Practitioner Acute Care
PROC: 5A09357 Assistance with Respiratory Ventilation, Less than 24 Consecutive Hours, Continuous Positive Airway Pressure (ICD-10-PCS; principal; 2024-05-02)
DX: J44.1 Chronic obstructive pulmonary disease with (acute) exacerbation (principal); J96.21 Acute and chronic respiratory failure with hypoxia; J15.69 Pneumonia due to other Gram-negative bacteria; D68.59 Other primary thrombophilia; E44.0 Moderate protein-calorie malnutrition; J15.9 Unspecified bacterial pneumonia; J47.0 Bronchiectasis with acute lower respiratory infection; E88.09 Other disorders of plasma-protein metabolism, not elsewhere classified; J44.0 Chronic obstructive pulmonary disease with (acute) lower respiratory infection; E66.01 Morbid (severe) obesity due to excess calories; E78.5 Hyperlipidemia, unspecified; I73.9 Peripheral vascular disease, unspecified; Z20.822 Contact with and (suspected) exposure to COVID-19; Z79.01 Long term (current) use of anticoagulants; F03.90 Unspecified dementia, unspecified severity, without behavioral disturbance, psychotic disturbance, mood disturbance, and anxiety; R74.01 Elevation of levels of liver transaminase levels; I10 Essential (primary) hypertension; H54.8 Legal blindness, as defined in USA; H40.9 Unspecified glaucoma; H26.9 Unspecified cataract; N40.0 Benign prostatic hyperplasia without lower urinary tract symptoms; J43.9 Emphysema, unspecified; J98.4 Other disorders of lung
CPT/HCPCS: 36415; 71045-TC; 71250-TC; 80048-TC; 80076-TC; 80202-TC; 83735-TC; 83880; 84100-TC; 84484-TC; 85025-TC; 87040-TC; 87081-TC; 92526; 92611-TC; 94760-TC; 94799-TC; 97110-TC; 97116-TC; 97530-TC; A4223; G0378; J1650; J2543; J2919; J3370; J7050; J7060